=== PATIENT | male | born 1965 | race American Indian/Alaskan Native ===

== ENCOUNTER 2016-12-02 10:29 | Emergency (ER) | payer OTHER ==
[2016-12-02 11:52] LABS: RBC URINE 1 /hpf (0-3); URINE BILIRUBIN NEGATIVE (NEGATIVE); URINE BLOOD NEGATIVE (NEGATIVE); URINE COLOR Yellow (YELLOW); URINE GLUCOSE (UA) 3+ mg/dL (Normal); URINE KETONE NEGATIVE (NEGATIVE); URINE LEUKOCYTE ESTERASE NEG Leu/uL (Negative); URINE PROTEIN NEGATIVE (NEGATIVE); URINE UROBILINOGEN NORMAL mg/dL (0.2-1.0); WBC URINE 2 /hpf (0-5)
[2016-12-02 11:54] LABS: URINE HYALINE CAST 0-2 /lpf (0-2)
--- NOTE | 2016-12-02 12:15 | C.PDOC ---
History Of Present Illness 51 year old patient presents to the emergency department complaining of intermittent lower back and left flank pain for the past week. Patient states the pain is worse with heavy lifting. Currently, patient denies any pain. Patient also complains of urinary frequency and recent impotence. Patient reports he was diagnosed with diabetes Type II and a kidney problem 8 years ago. He does not take any medications nor followed up with his PMD since. Patient denies dysuria, abdominal pain, fever, chills, numbness, weakness, or incontinence. Time Seen by Provider: 12/02/16 11:28 Chief Complaint (Nursing): Back Pain History Per: Patient History/Exam Limitations: no limitations Onset/Duration Of Symptoms: Intermittent Episodes (1 week), Other Current Symptoms Are (Timing): Still Present Quality Of Discomfort: "Pain" Severity: Mild Pain Scale Rating Of: 3 Previous Symptoms: Back Pain Associated Symptoms: None Exacerbating Factor(s): Other (heavy lifting) Recent travel outside of the [place]: No Past Medical History Reviewed: Historical Data, Nursing Documentation, Vital Signs Vital Signs: Last Vital Signs Temp 97.7 F 12/02/16 15:01 Pulse 63 12/02/16 15:01 Resp 18 12/02/16 15:01 BP 159/80 H 12/02/16 15:01 Pulse Ox 99 12/04/16 11:08 - Medical History PMH: Diabetes Surgical History: No Surg Hx Family History: States: Unknown Family Hx - Social History Hx Tobacco Use: No Hx Alcohol Use: No Hx Substance Use: No - Immunization History Hx Tetanus Toxoid Vaccination: No Hx Influenza Vaccination: Yes (09/2016) Hx Pneumococcal Vaccination: No Review Of Systems Except As Marked, All Systems Reviewed And Found Negative. Constitutional: Negative for: Fever, Chills Gastrointestinal: Negative for: Abdominal Pain Genitourinary: Positive for: Frequency. Negative for: Dysuria, Incontinence Musculoskeletal: Positive for: Other (left flank pain) Neurological: Negative for: Weakness, Numbness Physical Exam - Physical Exam Appears: Non-toxic, No Acute Distress Skin: Warm, Dry Head: Atraumatic, Normacephalic Eye(s): bilateral: Normal Inspection, PERRL, EOMI Oral Mucosa: Moist Neck: Normal ROM, Supple Chest: Symmetrical Cardiovascular: Rhythm Regular Respiratory: Normal Breath Sounds, No Rales, No Rhonchi, No Wheezing Gastrointestinal/Abdominal: Soft, No Tenderness, No Guarding, No Rebound, Other Back: Normal Inspection, No CVA Tenderness, No Other ((-)left flank tenderness) Extremity: Normal ROM Extremity: Bilateral: Atraumatic Neurological/Psych: Oriented x3, Normal Speech, Normal Cognition Gait: Steady ED Course And Treatment - Laboratory Results Result Diagrams: 12/02/16 12:28 12/02/16 12:28 O2 Sat by Pulse Oximetry: 99 (RA) Pulse Ox Interpretation: Normal Progress Note: Plan: Labs Medical Decision Making Medical Decision Making: pt with hx dm and kidney disorder with intermittent flank pain, - check labs, ua , hydrate Disposition Counseled Patient/Family Regarding: Diagnosis, Need For Followup, Rx Given - Disposition Referrals: [facility] [Outside] Avani Fagan MD [Staff Provider] - Disposition: HOME/ ROUTINE Disposition Time: 14:02 Condition: STABLE Additional Instructions: Take medications as prescribed. Follow up in both Medical clinic and with Urology. Avoid fruits, sweets. Return to ER for any worsening symptoms, back pain or any other concerns. 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 - Scribe Statement The provider has reviewed the documentation as recorded by the Scribe Jojo Jacobsen All medical record entries made by the Scribe were at my direction and personally dictated by me. I have reviewed the chart and agree that the record accurately reflects my personal performance of the history, physical exam, medical decision making, and the department course for this patient. I have also personally directed, reviewed, and agree with the discharge instructions and disposition.
[2016-12-02] MEDS ORDERED: Sodium Chloride 0.9% 1,000 ML IV ONE (12:24)
[2016-12-02] MEDS ORDERED: Sodium Chloride 0.9% 1,000 ML ONE (12:29)
[2016-12-02 12:32] LABS: BASO % 0.7 % (0.0-2.0); EOS # 0.1 K/uL (0.0-0.7); EOS % 3.3 % (0.0-4.0); HEMATOCRIT 38.9 % (35.0-51.0); LYMPH # 1.7 K/uL (1.0-4.3); LYMPH % 37.1 % (20.0-40.0); MEAN CELL VOLUME 87.9 fL (80.0-94.0); MEAN CORPUSCULAR HEMOGLOBIN 29.2 pg (27.0-31.0); MEAN CORPUSCULAR HGB CONC 33.2 g/dL (33.0-37.0); MEAN PLATELET VOLUME 9.7 fL (7.2-11.7); MONO # 0.4 K/uL (0.0-0.8); MONO % 9.1 % (0.0-10.0); RED CELL DISTRIBUTION WIDTH 13.5 % (11.5-14.5); WHITE BLOOD COUNT 4.5 K/uL (4.8-10.8)
[2016-12-02 12:39] LABS: CHLORIDE 96 mmol/L (98-107); SODIUM 137 mmol/L (132-148)
[2016-12-02 12:40] LABS: POTASSIUM 4.3 mmol/L (3.6-5.2)
[2016-12-02 12:42] LABS: ALB/GLOB RATIO 1.3 (1.0-2.1); ALKALINE PHOSPHATASE 100 U/L (38-126); ALT/SGPT 14 U/L (21-72); AST/SGOT 29 U/L (17-59); BILIRUBIN,TOTAL 0.6 mg/dL (0.2-1.3); BLOOD UREA NITROGEN 25 mg/dL (9-20); CARBON DIOXIDE 27 mmol/L (22-30); GFR AFRICAN-AMERICAN > 60; TOTAL PROTEIN 7.7 g/dL (6.3-8.3)
[2016-12-02 12:43] LABS: CALCIUM 8.7 mg/dl (8.6-10.4); GLUCOSE,RANDOM 321 mg/dL (75-110)
[2016-12-02 15:03] VITALS: BP 159/80; PULSE 63; RESP 18; TEMP 97.7
[2016-12-04 11:09] VITALS: O2SAT 99
== END 2016-12-02 15:02 | disposition home or self-care (01) ==
LOC: C.ER 10:29
DX: E11.9 Type 2 diabetes mellitus without complications (principal)
CPT/HCPCS: 80053; 81001; 82948; 85025; 96360; 99285; J7040